=== PATIENT | female | born 1950 | race Two or more races ===

== ENCOUNTER → 2019-12-15 08:12 | Outpatient (CLI) | payer OTHER | END | disposition home or self-care (01) | LOC: EDBD 08:12 → LAB 08:12 | PROVIDERS: ATTEND Internal Medicine | DX: I10 Essential (primary) hypertension (principal); M54.5 Low back pain; Z01.810 Encounter for preprocedural cardiovascular examination; E03.8 Other specified hypothyroidism; E78.89 Other lipoprotein metabolism disorders; E66.8 Other obesity; G62.9 Polyneuropathy, unspecified; Z12.11 Encounter for screening for malignant neoplasm of colon; Z12.31 Encounter for screening mammogram for malignant neoplasm of breast; Z13.820 Encounter for screening for osteoporosis; E55.9 Vitamin D deficiency, unspecified ==

== ENCOUNTER 2019-12-15 09:09 | Outpatient (CLI) | payer OTHER | END 2019-12-15 09:18 | disposition home or self-care (01) | LOC: RAD 09:09 → EDBD 09:09 → RAD 09:18 | PROVIDERS: ATTEND Internal Medicine | DX: M54.5 Low back pain (principal); I10 Essential (primary) hypertension; Z01.810 Encounter for preprocedural cardiovascular examination; E03.8 Other specified hypothyroidism; E78.89 Other lipoprotein metabolism disorders; E66.8 Other obesity; M89.8X8 Other specified disorders of bone, other site; G62.89 Other specified polyneuropathies; Z12.11 Encounter for screening for malignant neoplasm of colon; Z12.31 Encounter for screening mammogram for malignant neoplasm of breast; Z13.820 Encounter for screening for osteoporosis ==

== ENCOUNTER → 2019-12-16 09:19 | Outpatient (CLI) | payer OTHER | END | disposition home or self-care (01) | LOC: LAB 09:19 | PROVIDERS: ATTEND Internal Medicine | DX: M54.5 Low back pain (principal); I10 Essential (primary) hypertension; Z01.810 Encounter for preprocedural cardiovascular examination; E03.8 Other specified hypothyroidism; E78.89 Other lipoprotein metabolism disorders; E66.8 Other obesity; M89.8X8 Other specified disorders of bone, other site; G62.89 Other specified polyneuropathies; Z12.11 Encounter for screening for malignant neoplasm of colon; Z12.31 Encounter for screening mammogram for malignant neoplasm of breast; Z13.820 Encounter for screening for osteoporosis; E55.9 Vitamin D deficiency, unspecified ==

== ENCOUNTER 2019-12-26 14:52 | Outpatient (CLI) | payer OTHER | END 2019-12-26 16:00 | disposition home or self-care (01) | LOC: NUCLEAR 14:52 | PROVIDERS: ATTEND Internal Medicine | DX: M81.0 Age-related osteoporosis without current pathological fracture (principal); I10 Essential (primary) hypertension; M54.5 Low back pain; Z01.810 Encounter for preprocedural cardiovascular examination; E03.8 Other specified hypothyroidism; E78.89 Other lipoprotein metabolism disorders; E66.8 Other obesity; M89.8X0 Other specified disorders of bone, multiple sites; G62.89 Other specified polyneuropathies; Z12.11 Encounter for screening for malignant neoplasm of colon; Z12.31 Encounter for screening mammogram for malignant neoplasm of breast; Z13.820 Encounter for screening for osteoporosis ==

== ENCOUNTER → 2020-02-14 | Outpatient (CLI) | payer OTHER | END | disposition home or self-care (01) | LOC: MRI 10:15 | PROVIDERS: ATTEND Orthopaedic Surgery | DX: M25.561 Pain in right knee (principal) | CPT/HCPCS: 73721 ==

== ENCOUNTER 2020-04-17 09:13 | Outpatient (CLI) | payer OTHER | END 2020-04-17 09:28 | disposition home or self-care (01) | LOC: LAB 09:13 | PROVIDERS: ATTEND Internal Medicine | DX: E78.89 Other lipoprotein metabolism disorders (principal); I10 Essential (primary) hypertension; M54.5 Low back pain; E66.8 Other obesity; M89.8X8 Other specified disorders of bone, other site; G62.89 Other specified polyneuropathies; M22.41 Chondromalacia patellae, right knee; Z12.11 Encounter for screening for malignant neoplasm of colon; Z12.31 Encounter for screening mammogram for malignant neoplasm of breast; Z13.820 Encounter for screening for osteoporosis ==

== ENCOUNTER 2020-07-23 08:20 | Outpatient (CLI) | payer OTHER | END 2020-07-23 08:30 | disposition home or self-care (01) | LOC: LAB 08:20 | PROVIDERS: ATTEND Internal Medicine | DX: E78.89 Other lipoprotein metabolism disorders (principal); I10 Essential (primary) hypertension; M54.5 Low back pain; E66.8 Other obesity; M89.8X8 Other specified disorders of bone, other site ==

== ENCOUNTER 2020-08-16 10:12 | Outpatient (CLI) | payer OTHER | END 2020-08-16 10:13 | disposition home or self-care (01) | LOC: RAD 10:12 | PROVIDERS: ATTEND Physical Medicine & Rehabilitation | DX: M17.12 Unilateral primary osteoarthritis, left knee (principal) ==

== ENCOUNTER → 2020-10-23 08:42 | Outpatient (CLI) | payer OTHER | END | disposition home or self-care (01) | LOC: LAB 08:42 | PROVIDERS: ATTEND Internal Medicine | DX: Z12.11 Encounter for screening for malignant neoplasm of colon (principal); I10 Essential (primary) hypertension; M54.5 Low back pain; E78.89 Other lipoprotein metabolism disorders; E66.8 Other obesity; M89.8X9 Other specified disorders of bone, unspecified site ==

== ENCOUNTER → 2020-10-24 09:25 | Outpatient (CLI) | payer OTHER | END | disposition home or self-care (01) | LOC: LAB 09:25 | PROVIDERS: ATTEND Internal Medicine | DX: I10 Essential (primary) hypertension (principal); M54.5 Low back pain; E78.9 Disorder of lipoprotein metabolism, unspecified; E66.8 Other obesity; M89.8X9 Other specified disorders of bone, unspecified site ==

== ENCOUNTER 2020-10-24 10:25 | Outpatient (CLI) | payer OTHER | END 2020-10-24 10:39 | disposition home or self-care (01) | LOC: RAD 10:25 | PROVIDERS: ATTEND Physical Medicine & Rehabilitation | DX: M54.5 Low back pain (principal); M79.642 Pain in left hand; M79.641 Pain in right hand ==

== ENCOUNTER 2021-04-03 07:34 | Outpatient (CLI) | payer OTHER | END 2021-04-03 07:55 | disposition home or self-care (01) | LOC: LAB 07:34 | PROVIDERS: ATTEND Internal Medicine | DX: I10 Essential (primary) hypertension (principal); M54.5 Low back pain; E78.89 Other lipoprotein metabolism disorders; E66.8 Other obesity; M89.8X8 Other specified disorders of bone, other site; Z12.11 Encounter for screening for malignant neoplasm of colon ==